=== PATIENT | female | born 1990 | race Caucasian/White ===

== ENCOUNTER 2017-09-11 20:52 | Emergency (ER) | payer OTHER ==
[~2017-09-11] VITALS: Ht 152.4 cm; Wt 51.7 kg
[2017-09-11] MEDS ORDERED: IBUPROFEN 600600 M1 PO (23:15)
[2017-09-11 23:33] VITALS: BP 107/71
== END 2017-09-11 23:35 | disposition home or self-care (01) ==
LOC: M.ERS 20:52
DX: R51 Headache (principal); Z88.8 Allergy status to other drugs, medicaments and biological substances

== ENCOUNTER 2017-11-09 20:07 | Emergency (ER) | payer OTHER ==
[~2017-11-09] VITALS: Ht 157.5 cm; Wt 52.6 kg
[~2017-11-09 20:07] MED LIST: IBUPROFEN 600600 M1 PO
[2017-11-09 20:11] VITALS: BP 111/72
[2017-11-09] MEDS ORDERED: BACTRIM DS TAB1 EACH PO (20:29)
[2017-11-09] MEDS ORDERED: KEFLEX500 M1 PO (20:29)
== END 2017-11-09 20:48 | disposition home or self-care (01) ==
LOC: M.ERS 20:07
DX: L03.114 Cellulitis of left upper limb (principal); F17.210 Nicotine dependence, cigarettes, uncomplicated; Z88.5 Allergy status to narcotic agent

== ENCOUNTER 2018-04-17 15:08 | Emergency (ER) | payer OTHER ==
[~2018-04-17] VITALS: Ht 160 cm; Wt 51.7 kg
[~2018-04-17 15:08] MED LIST changes: +BACTRIM DS TAB1 EACH PO; +KEFLEX500 M1 PO
[2018-04-17 15:31] VITALS: BP 125/65
== END 2018-04-17 15:31 | disposition home or self-care (01) ==
LOC: M.ERS 15:08
DX: G89.29 Other chronic pain (principal); M25.561 Pain in right knee

== ENCOUNTER 2018-05-08 22:11 | Emergency (ER) | payer OTHER ==
[~2018-05-08] VITALS: Ht 157.5 cm; Wt 51.7 kg
[2018-05-08 22:36] LABS: ABSOLUTE EOSINOPHILS 0.3 thou/uL (0.0-0.7); ABSOLUTE LYMPHOCYTES 2.3 thou/uL (0.8-5.3); ABSOLUTE MONOCYTES 0.7 thou/uL (0.0-1.2); ABSOLUTE NEUTROPHILS 7.8 thou/uL (1.6-8.1); BASOPHILS 0.3 %; EOSINOPHILS 2.5 %; HEMATOCRIT 40.2 % (37.0-47.0); HEMOGLOBIN 13.4 gm/dL (12.0-15.0); LYMPHOCYTES 20.2 %; MCH 30.7 pg (26.0-34.0); MCHC 33.2 g/dL (28.0-37.0); MCV 92.6 fL (80.0-100.0); MONOCYTES 6.6 %; MPV 7.9 fl. (7.2-11.1); NUCLEATED RBCS 0 /100WBC; PLATELET COUNT* 288 thou/uL (150-400); POLYS 70.4 %; RBC 4.35 mil/uL (4.20-5.00); RDW-CV 13.5 % (10.5-14.5); WBC 11.2 thou/uL (4.0-11.0)
[2018-05-08 22:44] LABS: ANION GAP 9 mmol/L (7-16); BUN 12 mg/dL (7-18); CALCIUM 8.7 mg/dL (8.5-10.1); CHLORIDE 104 mmol/L (98-107); CO2 27 mmol/L (21-32); CREATININE 0.8 mg/dL (0.6-1.3); GLUCOSE 113 mg/dL (70-99); SODIUM 140 mmol/L (136-145)
[2018-05-08 22:50] LABS: ALBUMIN 4.1 g/dL (3.4-5.0); ALKALINE PHOSPHATASE 104 U/L (46-116); LIPASE 169 U/L (73-393); MAGNESIUM 1.7 mg/dL (1.8-2.4); SGOT 20 U/L (15-37); SGPT 19 U/L (30-65); TOTAL BILIRUBIN 0.7 mg/dL (<0.1-1.0); TOTAL PROTEIN 8.2 g/dL (6.4-8.2); TROPONIN-I LEVEL <0.06 ng/mL (<0.06)
[2018-05-09] MEDS ORDERED: NORCO 5-325 TA1 EACH PO (01:23)
[2018-05-09 01:30] VITALS: BP 91/41
--- NOTE | 2018-05-09 13:07 | EKG ---
[place] [address] ELECTROCARDIOGRAM REPORT Name: EBONY TSANG Room: [facility]#: [id number] Admission: 05/08/18 Attend Phys: Discharge: 05/09/18 Date of : [birth year] Report #: [id number] THIS REPORT FOR: //name// [facility] ED Test Date: 2018-05-08 Test Time: 22:16:02 Pat Name: EBONY TSANG Department: Room: Gender: F Superintendent Tests: 99 : 1990 Requested By: Jose Lyn Order Number: [id number] MD: Oleksandr Kovacs Measurements Intervals [place] Rate: 100 P: 76 CA: 154 QRS: 62 QRSD: 81 T: 13 QT: 336 QTc: 434 Interpretive Statements Sinus tachycardia Borderline Q waves in inferior leads No previous ECG available for comparison Electronically Signed On 05-09-2018 13:07:13 CDT by Oleksandr Kovacs [email or web address] <ELECTRONICALLY SIGNED> By: Oleksandr Kovacs MD, [facility] 05/09/18 1307 2216 2216 Oleksandr Kovacs MD, FACC /EPI
--- NOTE | 2018-05-09 13:08 | EKG ---
[place] [address] ELECTROCARDIOGRAM REPORT Name: EBONY TSANG Room: [facility]#: [id number] Admission: 05/08/18 Attend Phys: Discharge: 05/09/18 Date of : [birth year] Report #: [id number] THIS REPORT FOR: //name// [facility] ED Test Date: 2018-05-09 Test Time: 00:19:20 Pat Name: EBONY TSANG Department: Room: Gender: F [employer]: : 1990 Requested By: Jose Lyn Order Number: [id number] MD: Oleksandr Kovacs Measurements Intervals [place] Rate: 77 P: 75 NE: 160 QRS: 66 QRSD: 78 T: 44 QT: 406 QTc: 460 Interpretive Statements Sinus rhythm ST elev, probable normal early repol pattern Baseline wander in lead(s) V6 Electronically Signed On 05-09-2018 13:08:36 CDT by Oleksandr Kovacs [email or web address] <ELECTRONICALLY SIGNED> By: Oleksandr Kovacs MD, [facility] 05/09/18 1308 0019 0019 Oleksandr Kovacs MD, FACC /EPI
== END 2018-05-09 01:30 | disposition home or self-care (01) ==
LOC: M.ERS 22:11
PROVIDERS: Emergency Medicine Emergency Medical Services
DX: R07.1 Chest pain on breathing (principal); F17.210 Nicotine dependence, cigarettes, uncomplicated; Z88.5 Allergy status to narcotic agent; Z88.4 Allergy status to anesthetic agent; Z98.890 Other specified postprocedural states

== ENCOUNTER 2018-05-28 00:37 | Emergency (ER) | payer OTHER ==
[~2018-05-28] VITALS: Ht 157.5 cm; Wt 49.9 kg
[~2018-05-28 00:37] MED LIST changes: +NORCO 5-325 TA1 EACH PO
[2018-05-28 01:03] LABS: URINE BILIRUBIN NEGATIVE (Negative); URINE BLOOD NEGATIVE (Negative); URINE CLARITY CLEAR; URINE COLOR YELLOW; URINE GLUCOSE-RANDOM NEGATIVE (Negative); URINE KETONES NEGATIVE (Negative); URINE LEUKOCYTES-REFLEX TRACE (Negative); URINE NITRITE-REFLEX NEGATIVE (Negative); URINE PROTEIN NEGATIVE (Negative); URINE UROBILINOGEN 0.2 E.U./dl (0.2-1.0)
[2018-05-28 01:16] LABS: AMP/METHAMP Negative (Negative); BARBITURATES Negative (Negative); BENZODIAZEPINES Negative (Negative); COCAINE Negative (Negative); METHADONE Negative (Negative); OPIATES Negative (Negative); PCP Negative (Negative); THC Negative (Negative)
[2018-05-28 01:21] LABS: BACTERIA-REFLEX >30 Many /HPF (None Seen); SQUAMOUS 0-3 Few /LPF (0-3); URINE RBC 0-2 Rare /HPF (0-2); WBC CLUMPS Few (None Seen)
[2018-05-28 01:22] LABS: CASTS None Seen /LPF (None Seen); CRYSTALS None Seen /LPF (None Seen); MUCUS 0-3 Light strn/LPF (None Seen)
[2018-05-28] MEDS ORDERED: PYRIDIUM200 MG PO (01:30)
[2018-05-28] MEDS ORDERED: CIPROFLOXACIN500 M1 PO (01:31)
[2018-05-28 01:53] VITALS: BP 111/54
[2018-05-29] MEDS ORDERED: NABUMETONE 750750 M1 PO (15:24)
[2018-05-29] MEDS ORDERED: ONDANSETRON HCL4 M2 PO (15:24)
[2018-05-29] MEDS ORDERED: MACROBID 100 M100 M2 PO (15:24)
[2018-05-29] MEDS ORDERED: NORCO 5-325 TA1 EACH PO ×2 (15:24→15:29)
[2018-05-29] MEDS ORDERED: KEFLEX500 M1 PO (16:32)
[2018-05-29] MEDS ORDERED: IBUPROFEN 800800 M1 PO (16:32)
[2018-05-29] MEDS ORDERED: PHENERGAN 25 MG25 M1 PO (16:33)
== END 2018-05-28 01:55 | disposition home or self-care (01) ==
LOC: M.ERS 00:37
PROVIDERS: Emergency Medicine
DX: N39.0 Urinary tract infection, site not specified (principal); Z98.890 Other specified postprocedural states; F17.210 Nicotine dependence, cigarettes, uncomplicated

== ENCOUNTER 2018-05-29 13:29 | Emergency (ER) | payer OTHER ==
[~2018-05-29] VITALS: Ht 157.5 cm; Wt 49.9 kg
[~2018-05-29 13:29] MED LIST changes: +CIPROFLOXACIN500 M1 PO; +PYRIDIUM200 MG PO
[2018-05-29 13:49] LABS: URINE BLOOD NEGATIVE (Negative); URINE CLARITY CLEAR; URINE COLOR ORANGE; URINE GLUCOSE-RANDOM TRACE (Negative); URINE KETONES NEGATIVE (Negative); URINE LEUKOCYTES NEGATIVE (Negative); URINE NITRITE POSITIVE (Negative); URINE PROTEIN 1+ (Negative)
[2018-05-29 13:51] LABS: ICTOTEST (BILI CONFIRMATORY) Negative (Negative); URINE BILIRUBIN 1+ (Negative)
[2018-05-29 14:01] LABS: CASTS None Seen /LPF (None Seen); CRYSTALS None Seen /LPF (None Seen); MUCUS 0-3 Light strn/LPF (None Seen); SQUAMOUS 4-10 Moderate /LPF (0-3); URINE RBC 0-2 Rare /HPF (0-2); URINE WBC 0-5 Rare /HPF (0-5)
[2018-05-29 14:14] LABS: ABSOLUTE BASOPHILS 0.1 thou/uL (0.0-0.2); ABSOLUTE EOSINOPHILS 0.2 thou/uL (0.0-0.7); ABSOLUTE LYMPHOCYTES 2.2 thou/uL (0.8-5.3); ABSOLUTE MONOCYTES 0.8 thou/uL (0.0-1.2); ABSOLUTE NEUTROPHILS 10.5 thou/uL (1.6-8.1); BASOPHILS 0.9 %; EOSINOPHILS 1.5 %; HEMATOCRIT 36.3 % (37.0-47.0); HEMOGLOBIN 12.2 gm/dL (12.0-15.0); LYMPHOCYTES 15.9 %; MCH 30.9 pg (26.0-34.0); MCHC 33.6 g/dL (28.0-37.0); MONOCYTES 5.6 %; MPV 8.2 fl. (7.2-11.1); NUCLEATED RBCS 0 /100WBC; PLATELET COUNT* 276 thou/uL (150-400); POLYS 76.1 %; RBC 3.94 mil/uL (4.20-5.00); RDW-CV 13.4 % (10.5-14.5); WBC 13.9 thou/uL (4.0-11.0)
[2018-05-29 14:17] LABS: CALCIUM 9.1 mg/dL (8.5-10.1); CREATININE 0.8 mg/dL (0.6-1.3); POTASSIUM 4.7 mmol/L (3.5-5.1)
[2018-05-29 14:21] LABS: ALBUMIN 3.7 g/dL (3.4-5.0); TOTAL BILIRUBIN 0.6 mg/dL (<0.1-1.0)
[2018-05-29] MEDS ORDERED: MACROBID 100 M100 M2 PO (15:24)
[2018-05-29] MEDS ORDERED: NORCO 5-325 TA1 EACH PO ×2 (15:24→15:29)
[2018-05-29] MEDS ORDERED: NABUMETONE 750750 M1 PO (15:24)
[2018-05-29] MEDS ORDERED: ONDANSETRON HCL4 M2 PO (15:24)
[2018-05-29 15:53] VITALS: BP 107/68
[2018-05-29] MEDS ORDERED: IBUPROFEN 800800 M1 PO (16:32)
[2018-05-29] MEDS ORDERED: KEFLEX500 M1 PO (16:32)
[2018-05-29] MEDS ORDERED: PHENERGAN 25 MG25 M1 PO (16:33)
== END 2018-05-29 15:55 | disposition home or self-care (01) ==
LOC: M.ERS 13:29
PROVIDERS: Nurse Practitioner Family
DX: N39.0 Urinary tract infection, site not specified (principal); D72.829 Elevated white blood cell count, unspecified; Z98.890 Other specified postprocedural states; F17.210 Nicotine dependence, cigarettes, uncomplicated; Z88.5 Allergy status to narcotic agent

== ENCOUNTER 2018-06-19 18:22 | Emergency (ER) | payer OTHER ==
[~2018-06-19] VITALS: Ht 157.5 cm; Wt 51.7 kg
[~2018-06-19 18:22] MED LIST changes: +IBUPROFEN 800800 M1 PO; +MACROBID 100 M100 M2 PO; +NABUMETONE 750750 M1 PO; +ONDANSETRON HCL4 M2 PO; +PHENERGAN 25 MG25 M1 PO
[2018-06-19] MEDS ORDERED: NAPROSYN500 MG PO (19:36)
[2018-06-19 20:27] VITALS: BP 121/70
== END 2018-06-19 20:30 | disposition home or self-care (01) ==
LOC: M.ERS 18:22
DX: S63.592A Other specified sprain of left wrist, initial encounter (principal); R51 Headache; F17.210 Nicotine dependence, cigarettes, uncomplicated; Z88.5 Allergy status to narcotic agent; Z88.8 Allergy status to other drugs, medicaments and biological substances; W23.0XXA Caught, crushed, jammed, or pinched between moving objects, initial encounter; Y93.89 Activity, other specified; Y92.89 Other specified places as the place of occurrence of the external cause; Y99.8 Other external cause status

== ENCOUNTER 2018-06-24 21:11 | Emergency (ER) | payer OTHER ==
[~2018-06-24] VITALS: Ht 157.5 cm; Wt 51.7 kg
[~2018-06-24 21:11] MED LIST changes: +NAPROSYN500 MG PO
[2018-06-24] MEDS ORDERED: TRAMADOL 50 MG50 MG PO (21:23)
[2018-06-24 21:44] VITALS: BP 130/78
== END 2018-06-24 21:47 | disposition home or self-care (01) ==
LOC: M.ERS 21:11
DX: S63.502A Unspecified sprain of left wrist, initial encounter (principal); X58.XXXA Exposure to other specified factors, initial encounter; Y93.89 Activity, other specified; Y92.89 Other specified places as the place of occurrence of the external cause; Y99.8 Other external cause status

== ENCOUNTER 2020-11-15 09:52 | Emergency (ER) | payer OTHER ==
[~2020-11-15] VITALS: Ht 152.4 cm; Wt 54.4 kg
[~2020-11-15 09:52] MED LIST changes: +TRAMADOL 50 MG50 MG PO
[2020-11-15] MEDS ORDERED: FLEXERIL PO (11:45)
[2020-11-15 12:15] VITALS: BP 125/70
== END 2020-11-15 12:15 | disposition home or self-care (01) ==
LOC: M.ERS 09:52
DX: S16.1XXA Strain of muscle, fascia and tendon at neck level, initial encounter (principal); F17.210 Nicotine dependence, cigarettes, uncomplicated; Z98.51 Tubal ligation status; Z98.890 Other specified postprocedural states; Z88.5 Allergy status to narcotic agent; Z88.8 Allergy status to other drugs, medicaments and biological substances; W18.39XA Other fall on same level, initial encounter; Y93.89 Activity, other specified; Y92.89 Other specified places as the place of occurrence of the external cause; Y99.8 Other external cause status